=== PATIENT | female | born 1975 | race Caucasian/White ===

== ENCOUNTER 2018-06-22 19:12 | Emergency (ER) | payer OTHER ==
[~2018-06-22] VITALS: Ht 149.9 cm; Wt 70.3 kg
[2018-06-22] MEDS ORDERED: PREDNISONE50 MG PO (20:32)
[2018-06-22] MEDS ORDERED: NORCO 7.5-3251 EACH PO (20:32)
[2018-06-22 21:00] VITALS: BP 128/82
== END 2018-06-22 21:04 | disposition home or self-care (01) ==
LOC: M.ERS 19:12
DX: M23.8X1 Other internal derangements of right knee (principal)